=== PATIENT | male | born 1980 | race Caucasian/White ===

== ENCOUNTER 2018-06-20 13:43 | Emergency (ER) | payer OTHER ==
[~2018-06-20] VITALS: Ht 180.3 cm; Wt 93.0 kg
[~2018-06-20 13:43] MED LIST: IBUPROFEN 600600 M1 PO; KEFLEX500 MG PO; NOHOMEMEDICATIONS
[2018-06-20] MEDS ORDERED: IBUPROFEN 600600 M1 PO (14:57)
[2018-06-20] MEDS ORDERED: AZITHROMYCIN 2250 MG PO (14:57)
[2018-06-20] MEDS ORDERED: ACETAMINOPHEN-1 EAC1 PO (14:57)
[2018-06-20] MEDS ORDERED: VENTOLIN HFA 1818 GM INH (16:24)
[2018-06-20 16:44] VITALS: BP 129/76
== END 2018-06-20 16:45 | disposition home or self-care (01) ==
LOC: ER 13:43
DX: J18.9 Pneumonia, unspecified organism (principal); R19.7 Diarrhea, unspecified; Z88.8 Allergy status to other drugs, medicaments and biological substances